=== PATIENT | female | born 1995 | race Caucasian/White ===

== ENCOUNTER 2020-09-03 19:26 | Emergency (ER) | payer OTHER ==
[~2020-09-03 19:26] MED LIST: NORCO 5-325 TA1 EACH PO
[2020-09-03 19:53] LABS: HEMOGLOBIN 12.9 gm/dl (12.3-15.3); RED BLOOD COUNT 4.29 M/UL (4.00-5.10); WHITE BLOOD COUNT 8.4 K/UL (4.5-11.0)
[2020-09-03 20:24] LABS: BUN/CREATININE RATIO 18 (0-10)
== END 2020-09-03 22:23 | disposition home or self-care (01) ==
LOC: ER1 19:26
PROVIDERS: Emergency Medicine
DX: K52.9 Noninfective gastroenteritis and colitis, unspecified (principal); F17.200 Nicotine dependence, unspecified, uncomplicated; Z20.822 Contact with and (suspected) exposure to COVID-19
CPT/HCPCS: 80053; 81001; 83605; 83690; 84703; 85025; 87040; 93005; 96374; 99284; J2270; J2405; Q9967; U0002

== ENCOUNTER 2021-06-22 18:41 | Emergency (ER) | payer OTHER | END 2021-06-22 22:25 | disposition home or self-care (01) | LOC: ER1 18:41 | DX: R50.9 Fever, unspecified (principal); R09.89 Other specified symptoms and signs involving the circulatory and respiratory systems; R51.9 Headache, unspecified; Z20.822 Contact with and (suspected) exposure to COVID-19 | CPT/HCPCS: 99284; U0002 ==

== ENCOUNTER 2021-09-12 21:43 | Emergency (ER) | payer OTHER | END 2021-09-12 23:20 | disposition left against medical advice (07) | LOC: ER1 21:43 | DX: Z53.21 Procedure and treatment not carried out due to patient leaving prior to being seen by health care provider (principal) ==